=== PATIENT | female | born 1935 | race Caucasian/White ===

== ENCOUNTER 2022-01-02 12:47 | Outpatient (CLI) | payer MEDICARE, MEDICAID ==
[~2022-01-02 12:47] MED LIST: AMLO-309 PO; ASPI-1265 PO; ATOR40TA PO; CA C1TAB91 PO; DOCO1CAP6; HYDR12.522 PO; LOP25T PO; OMEP-84 PO; POTA20TA84 PO; TOMAZAPAM
== END 2022-01-02 23:59 | disposition home or self-care (01) ==
LOC: RAD 12:47
PROVIDERS: ATTEND Psychiatry & Neurology Neurology
DX: G25.3 Myoclonus (principal)
CPT/HCPCS: 95816